=== PATIENT | female | born 1950 | race Caucasian/White ===

== ENCOUNTER 2018-05-24 07:26 | Observation (INO) | payer OTHER ==
[2018-05-24] MEDS ORDERED: NS 1,000 ML IV ONE (07:31)
[2018-05-24] MEDS ORDERED: DIAZEPAM 5 MG TAB PO ONE (07:31)
[2018-05-24] MEDS ORDERED: ASPIRIN EC 325 MG TAB PO ONE ×2 (07:31→08:15)
[2018-05-24] MEDS ORDERED: diphenhydrAMINE 25 MG CAP PO ONE ×2 (07:31→08:14)
[2018-05-24] MEDS ORDERED: FAMOTIDINE 20 MG TAB PO ONE (07:31)
[2018-05-24 08:13] LABS: PLATELET COUNT 300 10^3/uL (150-400)
[2018-05-24] MEDS ORDERED: FAMOTIDINE 20 MG TAB ONE (08:14)
[2018-05-24] MEDS ORDERED: DIAZEPAM 5 MG TAB ONE (08:16)
[2018-05-24 08:40] LABS: INR 0.93 (0.83-1.16); PROTIME(PATIENT) 12.7 SEC (12.0-15.0)
[2018-05-24] MEDS ORDERED: HEPARIN 10,000 UNIT/10 ML MDV (1,000 UNIT/ML) ONE (09:02)
[2018-05-24] MEDS ORDERED: LIDOCAINE 1% 300 MG/30 ML SDV ONE (09:02)
[2018-05-24] MEDS ORDERED: IOPAMIDOL (ISOVUE-300) 150 ML BTL ONE ×2 (09:02→10:30)
[2018-05-24] MEDS ORDERED: fentaNYL 100 MCG/2 ML INJ ONE ×3 (09:03→11:38)
[2018-05-24] MEDS ORDERED: MIDAZOLAM 2 MG/2 ML VIAL ONE ×3 (09:03→10:57)
--- NOTE | 2018-05-24 09:22 | PDHPUP ---
History & Physical Update H&P update statement: This history and physical update is based on an assessment of the patient which was completed after admission or registration (within 24 hours), but prior to the surgery/procedure. H&P update: H&P reviewed & patient examined, no change in patient's condition since H&P completed
--- NOTE | 2018-05-24 09:22 | PDPROPOC ---
Sedation Plan of Care Sedation Plan of Care: vital signs stable, mental status noted, patient educated of risks, benefits, alternatives, patient can tolerate sedation ASA Classification: ASA 2 Planned drugs: fentanyl, midazolam Mallampati Score: Class 2 Mallampati Reference Image: Patient passed 3-3-2 rule?: Yes
[2018-05-24] MEDS ORDERED: NITROGLYCERIN 1,500 MCG/15 ML VIAL MISC ONE (11:54)
[2018-05-24] MEDS ORDERED: IOPAMIDOL (ISOVUE-300) 50 ML VIAL ONE (11:56)
[2018-05-24] MEDS ORDERED: CLOPIDOGREL BISULFATE 75 MG TAB ONE (12:02)
[2018-05-24] MEDS ORDERED: TEMAZEPAM 15 MG CAP PO PRN (12:26)
[2018-05-24] MEDS ORDERED: CLOPIDOGREL BISULFATE 75 MG TAB PO ONE (12:26)
[2018-05-24] MEDS ORDERED: NITROGLYCERIN 0.4 MG BTL SL PRN (12:26)
[2018-05-24] MEDS ORDERED: ATROPINE SULFATE 1 MG/10 ML SYR IVP PRN (12:26)
[2018-05-24] MEDS ORDERED: LORazepam 2 MG/ML INJ IVP PRN (12:26)
[2018-05-24] MEDS ORDERED: ONDANSETRON 4 MG/2 ML VIAL IVP PRN (12:26)
[2018-05-24] MEDS ORDERED: MAG HYDROX/AL HYDROX/SIMETH 30 ML UDCUP ONE (12:30)
[2018-05-24] MEDS ORDERED: MAG HYDROX/AL HYDROX/SIMETH 30 ML UDCUP PO PRN (13:22)
--- NOTE | 2018-05-24 15:58 | CPIP ---
[f rep st] INVASIVE CARDIAC PROCEDURE DATE OF PROCEDURE: 05/24/2018 PROCEDURE: 1. Abdominal aortography. 2. Left lower extremity angiography via contralateral approach with catheter placed in the left comm on femoral artery. 3. Right lower extremity angiography via ipsilateral approach with catheter placed in the right comm on iliac artery. 4. Angioplasty of left superficial femoral artery using drug coated balloon. INDICATION: Claudication. ACCESS: Patient was prepped and draped in sterile fashion. 1% lidocaine was used to anesthetize the right inguinal region. A 6-Chilean introducer sheath was placed selectively in the right common femo ral artery via modified Seldinger technique. The 6-Chilean introducer sheath was later exchanged for a 6-Chilean [place] Destination sheath via exchange wire technique. The sheath was then exchanged fo r a 7-Chilean introducer sheath via exchange wire technique. ABDOMINAL AORTOGRAPHY: A 6-Chilean pigtail catheter was placed in the abdominal aorta and position ve rified by angiography. Images were obtained via power injection through the [place] system. The abdo frances aorta gave rise to a single left and single right renal artery. The renal arteries appeared fr ee of any significant disease. Below the renal arteries, the distal abdominal aorta was diffusely di seased with stenoses approaching 20% in severity. The distal abdominal aorta then bifurcated into th e right and left common iliac arteries. The right common iliac artery had a 40% to 50% stenosis pres ent. The left common iliac artery had a 40% to 50% stenosis present. LEFT LOWER EXTREMITY ANGIOGRAPHY VIA CONTRALATERAL APPROACH WITH CATHETER PLACED IN THE LEFT COMMON F EMORAL ARTERY: The Sos Omni catheter was placed in the distal abdominal aorta and reformed into its usual position. The catheter was used to selectively engage the left common iliac artery. Images we re obtained via hand injection. The left common iliac artery bifurcated into the internal iliac angel ry and external iliac arteries. The left common iliac artery had a proximal ostial 40% to 50% stenos is present. The left internal iliac artery had an ostial 90% stenosis present. The left external il iac artery had a long segmental 30% stenosis present. An angled Glidewire was then placed in the lef t common femoral artery, and the Sos Omni catheter was exchanged for a straight flush catheter, and i mages were obtained of the remainder of the left lower extremity. The left external iliac artery tur jacinto into the left common femoral artery. The left common femoral artery appeared free of any signifi cant disease. The left common femoral artery then bifurcated into the superficial femoral artery and profunda femoral artery. The proximal portion of the superficial femoral artery was diffusely disea sed. At approximately 30% to 40% in severity. In the mid to distal vessel, there was a long segment al 99% stenosis of the superficial femoral artery. The superficial femoral artery then turned into t he popliteal artery. The popliteal artery had mild luminal irregularities. There was no stenosis gr eater than 10% to 20%. Below the knee, there was 2-vessel runoff via the posterior tibial and the pe roneal arteries. RIGHT LOWER EXTREMITY ANGIOGRAPHY VIA IPSILATERAL APPROACH: The straight flush catheter was placed i n the right common iliac artery and images obtained. The right common iliac artery bifurcated into t he internal and external iliac arteries. The right common iliac artery had an ostial 40% to 50% sten osis present. The right internal iliac artery appeared free of any significant disease in the proxim al segment. The right external iliac artery had a segmental 20% stenosis present. The right externa l iliac artery then turned into the right common femoral artery. The right common femoral artery is free of any significant disease. The right common femoral artery then bifurcated into the superficia l femoral artery and profunda femoral artery. The right superficial femoral artery was diffusely dis eased. In the proximal mid segment, there is sequential 20% stenosis present. In the mid to distal segment, there is sequential 80% stenosis present. The right superficial femoral artery then turned into the popliteal artery. The popliteal artery had a discrete 30% stenosis in the proximal segment. The popliteal artery then trifurcated below the knee. There was 2-vessel runoff via the anterior t ibial and peroneal arteries. ANGIOPLASTY OF THE LEFT SUPERFICIAL FEMORAL ARTERY: A [place] Destination sheath was placed in the left external iliac artery via exchange wire technique. An attempt was made at passing an angled Gli dewire across the mid to distal superficial femoral artery lesion. This was unsuccessful. The angle d Glidewire was then exchanged for a Luge wire. The Luge wire was also unsuccessful at navigating ac ross the lesion. The Luge wire was then exchanged for a Family Nurse 50 wire which successfully navigated a cross the distal superficial femoral artery lesion and was placed in the popliteal artery. A 2.0 x 4 0 cavity balloon was then advanced over the catheter into the popliteal artery. Distal injection con firmed luminal access in the popliteal artery. The 2.0 x 40 cavity balloon was then used to pre-dila te the lesion. Followup angiography demonstrated significant residual stenosis. A 3.0 x 100 cavity balloon was then used to pre-dilate the lesion. Followup angiography demonstrated significant residu al stenosis. A 3.5 x 15 cavity balloon was used to address the high-grade calcific lesion. Followup angiography demonstrated resolution of this lesion. A 4.0 x 100 guide travel was placed across the lesio n and deployed. Followup angiography demonstrated no residual stenosis. A 4.0 x 150 Lutonix balloon was then placed across the lesion and deployed. Followup angiography demonstrated no significant re sidual stenosis. COMPLICATIONS: None. CONCLUSIONS: 1. 99% left superficial femoral artery stenosis status post drug-coated balloon angioplasty with goo d result. 2. 80% right superficial femoral artery stenosis. We will plan on staged intervention of this lesio n. /[id number]/MODL
[2018-05-24] MEDS: OXYCODONE/APAP 5/325 TAB PO PRN (17:07)
--- NOTE | 2018-05-24 17:09 | CPEKG ---
Test Reason : OPEN Blood Pressure : / mmHG Vent. Rate : 079 BPM Atrial Rate : 056 BPM P-R Int : 171 ms QRS Dur : 080 ms QT Int : 463 ms P-R-T Axes : 026 011 026 degrees QTc Int : 531 ms Sinus rhythm Prolonged QT interval Confirmed by Car Johnson ([id number]) on 05/24/2018 5:08:27 PM Referred By: Confirmed By:Car Johnson
--- NOTE | 2018-05-24 17:12 | CPEKG ---
Test Reason : OPEN Blood Pressure : / mmHG Vent. Rate : 058 BPM Atrial Rate : 057 BPM P-R Int : 181 ms QRS Dur : 086 ms QT Int : 468 ms P-R-T Axes : 064 017 035 degrees QTc Int : 460 ms Sinus rhythm Confirmed by Car Johnson ([id number]) on 05/24/2018 5:12:27 PM Referred By: Confirmed By:Car Johnson
[2018-05-24] MEDS: METOPROLOL TARTRATE 25 MG TAB PO SCH (20:47)
[2018-05-24] MEDS ORDERED: ATORVASTATIN CALCIUM 40 MG TAB PO SCH (21:00)
[2018-05-25 04:52] LABS: PLATELET COUNT 235 10^3/uL (150-400)
[2018-05-25 07:21] VITALS: BP 92/45
[2018-05-25] MEDS ORDERED: ASPIRIN EC 325 MG TAB PO SCH (09:00)
[2018-05-25] MEDS ORDERED: CLOPIDOGREL BISULFATE 75 MG TAB PO SCH (09:00)
[2018-05-25] MEDS ORDERED: ASCORBIC ACID 500 MG TAB PO SCH (09:00)
[2018-05-25] MEDS ORDERED: CHOLECALCIFEROL VIT D3 1,000 UNITS TAB PO SCH (09:00)
[2018-05-25] MEDS ORDERED: amLODIPine BESYLATE 5 MG TAB PO SCH (09:00)
[2018-05-25] MEDS: METOPROLOL TARTRATE 25 MG TAB PO SCH (09:09)
--- NOTE | 2018-05-25 09:36 | GDS ---
[f rep st] DISCHARGE SUMMARY SUPERVISING CLOTHING CONSULTANT: Nikolay Allan MD. ADMISSION DIAGNOSES: 1. Peripheral vascular disease. 2. Claudication. 3. Coronary artery disease, with remote coronary artery bypass graft. 4. History of paroxysmal atrial fibrillation (1 time postoperative coronary artery bypass graft). 5. Hypercholesterolemia. 6. Hypertension. 7. Chronic obstructive pulmonary disease. 8. Current tobacco abuse. DISCHARGE DIAGNOSES: 1. Peripheral vascular disease. 2. Status post angioplasty of left superficial femoral artery using a drug-coated balloon. 3. Coronary artery disease with remote history of coronary artery bypass graft. 4. Paroxysmal atrial fibrillation (1 time postoperative coronary artery bypass graft). 5. Hypercholesteremia. 6. Hypertension. 7. Chronic obstructive pulmonary disease. 8. Tobacco abuse. PROCEDURES PERFORMED DURING HOSPITALIZATION: 1. Electrocardiogram. 2. Abdominal aortogram. 3. Left lower extremity angiogram. 4. Right lower extremity angiogram. 5. Angioplasty of left superficial femoral artery using a drug-coated balloon. BRIEF HISTORY: Please see H and P. Briefly, the patient is a 68-year-old female with significant banner history of CAD, CABG x5 vessels in 2014, paroxysmal atrial fibrillation (1 time postop CABG), hype rcholesteremia, hypertension, COPD, and current smoker. Recently seen in the office by me, reporting ongoing pain with exertion in both lower extremities, in the calves and thighs. She did undergo VANNESSA testing, showing on the right of 0.74 and on the left of 0.45. After VANNESSA, she did undergo CT angiog bert of her lower extremities, showing high-grade disease in the superficial femoral arteries bilatera l. She was referred to Dr. Justino Estrada of Interventional Cardiology and peripheral vascular. He ivonne luated the patient and felt she was an appropriate candidate to undergo angiogram, with possible jacob pheral vascular intervention. HOSPITAL COURSE: Patient admitted through CVC, prepped for procedure, and taken to the cardiac ervin terization lab. There, Dr. Estrada performed an abdominal aortogram, which showed no significant dise ase in the renal arteries, below diffuse in the abdominal aorta, diffuse disease with sten osis approaching up to 20% in severity. Right common iliac artery had a 40% to 50% stenosis. The le ft common iliac artery had a 40% to 50% stenosis. Then left lower extremity angiogram was performed, again noticing 40% to 50% in the common iliac artery. The left internal iliac artery had a 90% sten osis present. The left external iliac artery had a long segment of 30% stenosis. A right lower extre mity angiogram was performed, showing 40% to 50% in the iliac artery. The right external iliac arter y showed a 20% stenosis. The right superficial artery showed diffuse disease, with a proximal mid se gment with 20% stenosis and the mid to distal 80% stenosis. The popliteal artery had a 30% stenosis in the proximal segment. At that point, percutaneous intervention was performed with balloon angiopl asty with drug-eluting balloon angioplasty to the left superficial femoral artery. No complications. Patient was taken back to the CVC, and ultimately to the PCU for overnight observation. Patient re ports today noticing significant improvement in her left lower extremity with movement, denying any c laudication. She has been up and walking in the unit without difficulties. Overnight, she was noted to be mildly hypotensive with systolic blood pressures in the mid 90s, but she was asymptomatic. Sh e reports no chest pain or pressure. PHYSICAL EXAMINATION: GENERAL: Done today, showing she is alert and oriented to person, place, time , and situation. Appears to be under no acute distress. VITAL SIGNS: Current vital signs are blood pressure of 96/52. Heart rate is 60, sinus rhythm on the monitor. Respirations are 20, saturating 9 6% on room air. Temperature 37.1 degrees Celsius. HEENT: Head is normocephalic. Lips and tongue a re pink and moist, with no signs of cyanosis. Conjunctivae pink. NECK: Trachea is midline. +2 car otid pulses bilateral. No auscultated bruits. No jugular vein distention. RESPIRATORY: Lungs are clear to auscultation, no rhonchi, rales or wheezes. No accessory muscle use. No intercostal muscle retraction noted. CARDIAC: Regular rate, regular rhythm, S1, S2, no S3, S4, gallops, rubs or murmu rs noted. ABDOMEN: Soft, nontender, bowel sounds x4 quadrants. No organomegaly. No palpable krishna s. SKIN: [place], warm, dry, no cyanosis, no clubbing, no peripheral edema. VASCULAR: +2 carotids bi lateral, +2 radials bilateral, +1-2 post tibial and dorsal pedal pulses in the left lower extremity, +1 posterior tibial pulses, right lower extremity. RIGHT GROIN SITE: Catheter insertion site, with mild ecchymosis but no redness, swelling, drainage, or hematoma noted. No auscultated bruit. LABORATORY STUDIES: WBC of 7.57, hemoglobin 13.6, hematocrit of 41.4, platelet count 235. Sodium 14 1, potassium 4.3, chloride 110, CO2 25, BUN 11, creatinine 0.8, glucose 92, calcium 8.5. On admissio n, it was noted fasting lipid panel showed triglycerides of 117, total cholesterol 130, LDL 65, HDL 4 2. DISCHARGE DISPOSITION: Patient will be discharged home in stable condition. He is under activity re strictions of not lifting more than 10 pounds for the next week. No strenuous activity for the next 2 weeks. PROCEDURES PERFORMED: Peripheral vascular intervention as mentioned above. Electrocardiogram done o n the showing sinus rhythm, with no significant ST or T-wave abnormalities. DISCHARGE MEDICATIONS: Please see discharge medication reconciliation. Note that patient's home asp irin dosage has been increased to 325 mg p.o. daily. She has also been started on antiplatelet thera py at clopidogrel 75 mg p.o. today. Also, because of her lower blood pressures, her amlodipine has been discontinued. DISCHARGE INSTRUCTIONS: Post percutaneous peripheral intervention discharge instructions went over w ith the patient and her , including monitoring for signs of infection, bleeding precautions an d activity restrictions. Importance of medication compliance was also discussed. Also, a long discu ssion with the patient about her tobacco abuse. She has been referred to the [place] [facility]. Ul timately, she needs to quit smoking for both her heart disease and peripheral vascular disease. She verbalizes understanding. At the time of discharge, the patient verbalizes understanding all instruc tions and has no questions or concerns. Our office will call her on Sunday to schedule her for a sta ged intervention to her right lower extremity to be done in the next [address] Estrada. Patient has been told that if any problems or concerns come up post discharge, she is to notify our office or return to the hospital. Total time spent on discharge greater than 30 minutes. /[id number]/MODL
[2018-05-25] MEDS: OXYCODONE/APAP 5/325 TAB PO PRN (09:42)
[2018-05-28] MEDS ORDERED: ALENDRONATE SODIUM 70 MG TAB PO SCH (07:00)
== END 2018-05-25 10:00 | disposition home or self-care (01) ==
LOC: FCATH 07:26 → F2W 12:27
PROVIDERS: ADMIT Internal Medicine Cardiovascular Disease; ATTEND Internal Medicine Cardiovascular Disease
PROC: 04HL33Z Insertion of Infusion Device into Left Femoral Artery, Percutaneous Approach (ICD-10-PCS; principal; 2018-05-24)
PROC: 047C341 Dilation of Right Common Iliac Artery with Drug-eluting Intraluminal Device, using Drug-Coated Balloon, Percutaneous Approach (ICD-10-PCS; principal; 2018-05-24)
PROC: 04HC33Z Insertion of Infusion Device into Right Common Iliac Artery, Percutaneous Approach (ICD-10-PCS; principal; 2018-05-24)
DX: I73.9 Peripheral vascular disease, unspecified (principal); I25.10 Atherosclerotic heart disease of native coronary artery without angina pectoris; I48.0 Paroxysmal atrial fibrillation; E78.00 Pure hypercholesterolemia, unspecified; I10 Essential (primary) hypertension; J44.9 Chronic obstructive pulmonary disease, unspecified; F17.200 Nicotine dependence, unspecified, uncomplicated
CPT/HCPCS: 75630; 75716; 93005; C1725; C1769; C1887; C2623; G0378; J1644; J2250; J2405; J3010; Q9967

== ENCOUNTER 2018-06-13 07:45 | Observation (INO) | payer OTHER ==
[2018-06-13] MEDS ORDERED: diphenhydrAMINE 25 MG CAP PO ONE (07:46)
[2018-06-13] MEDS ORDERED: DIAZEPAM 5 MG TAB PO ONE (07:46)
[2018-06-13] MEDS ORDERED: FAMOTIDINE 20 MG TAB PO ONE (07:46)
[2018-06-13] MEDS ORDERED: NS 1,000 ML IV ONE (07:46)
[2018-06-13] MEDS ORDERED: ASPIRIN EC 325 MG TAB PO ONE (07:46)
[2018-06-13 08:14] LABS: PLATELET COUNT 303 10^3/uL (150-400)
[2018-06-13 08:27] LABS: INR 0.96 (0.83-1.16)
[2018-06-13] MEDS ORDERED: fentaNYL 100 MCG/2 ML INJ ONE ×2 (08:55→09:31)
[2018-06-13] MEDS ORDERED: HEPARIN 10,000 UNIT/10 ML MDV (1,000 UNIT/ML) ONE (08:55)
[2018-06-13] MEDS ORDERED: MIDAZOLAM 2 MG/2 ML VIAL ONE ×3 (08:55→10:07)
[2018-06-13] MEDS ORDERED: IOPAMIDOL (ISOVUE-300) 150 ML BTL ONE ×3 (08:56→10:34)
[2018-06-13] MEDS ORDERED: LIDOCAINE 1% 300 MG/30 ML SDV ONE (08:57)
--- NOTE | 2018-06-13 09:25 | PDGENHP ---
History & Physical Chief Complaint: claudication History of Present Illness: Pt has known PVD. She is s/p peripheral angiography in 05/18 demonstrated significant disease of her R and L SFA. She was treated with DCB angioplasty of L SFA. Pt continues to have life style limiting claudication of her RLE. She denies rest pain and non-healing ulcers. Pertinent Past, Social, Family History: See H and P Relevant Physical Exam: 2+ DP and PT on L deminished pulses on R. Lungs CTA. RRR, S1, S2. Cardiorespiratory Assessment: Pt presents with life style limiting claudication and has known high grade disease of her R SFA. Plan is for peripheral angiography and interventiuon.
[2018-06-13] MEDS ORDERED: NITROGLYCERIN 1,500 MCG/15 ML VIAL MISC ONE (10:27)
[2018-06-13] MEDS ORDERED: ONDANSETRON 4 MG/2 ML VIAL IVP PRN (11:05)
[2018-06-13] MEDS ORDERED: NITROGLYCERIN 0.4 MG BTL SL PRN (11:05)
[2018-06-13] MEDS ORDERED: ATROPINE SULFATE 1 MG/10 ML SYR IVP PRN (11:05)
--- NOTE | 2018-06-13 11:21 | CPIP ---
DATE OF PROCEDURE: 06/13/2018 PROCEDURE: 1. Left lower extremity angiography via ipsilateral approach with catheter placed in the left common femoral artery. 2. Right lower extremity angiography via contralateral approach with catheter placed in the right ex ternal iliac artery. 3. Drug coated balloon angioplasty of the right superficial femoral artery. INDICATION: Lifestyle limiting claudication. ACCESS: Patient was prepped and draped in sterile fashion. 1% lidocaine was used to anesthetize the left inguinal region. A 6-Malawian introducer sheath was placed in the left common femoral artery via modified Seldinger technique. The 6-Malawian introducer sheath was later exchanged for a 7-Malawian int roducer sheath via exchange wire technique, left lower extremity angiography via ipsilateral approach with catheter placed in the left common femoral artery. Images were obtained via hand injection thr ough the 6-Malawian introducer sheath placed selectively into the left common femoral artery. The left external iliac artery had a long 40% to 50% stenosis present. The left external iliac artery then t urned into the left common femoral artery. The left common femoral artery was free of any significan t disease. The left common femoral artery then bifurcated into the superficial femoral artery and pr ofunda femoral artery. The left superficial femoral artery was diffusely disease with scattered 25% stenosis throughout. Right lower extremity angiography via contralateral approach with catheter plac ed in the right external iliac artery. A Sos Omni catheter was placed in the distal abdominal aorta and reformed into its usual position. It was used to selectively engage the right common iliac arter y. The right common iliac artery bifurcated into an internal iliac artery and external iliac arterie s. The right common iliac artery had an ostial 25% stenosis present. The right internal iliac arter y was free of any significant disease. The right external iliac artery had mild diffuse disease. Th ere was no stenosis greater than 15%. The right external iliac artery then turned into the right com mon femoral artery. The right common femoral artery was free of any significant disease. The right common femoral artery then bifurcated into the superficial femoral artery and profunda femoral arteri es. The right superficial femoral artery was diffusely diseased. In the mid vessel, there was a seg mental 70% stenosis present and in the distal vessel, there was a segmental 90% stenosis present. Th e right superficial femoral artery then turned into the popliteal artery. The popliteal artery had a discrete 30% stenosis present. Below the knee, there was 3-vessel runoff. The posterior tibial art dominic was a small and diminutive vessel. The anterior tibial artery was the largest of the 3 vessels. Drug coated balloon angioplasty of the right superficial femoral artery. A 6-Malawian [place] Romero ation sheath was placed in the right external iliac artery and position verified by angiography. A G lidewire was placed in the popliteal artery and position verified by angiography. A 5.0 x 40 Lutonix balloon was used to dilate the distal 90% stenosis. Followup angiography demonstrated 20% residual stenosis with evidence of a non flow limiting dissection. A 4.0 x 60 Lutonix drug coated balloon was then placed in the mid vessel across the 70% patient and deployed. Followup angiography demonstrate d no limitation of flow. No significant residual stenosis. COMPLICATIONS: None. CONCLUSIONS: 1. 70% mid right superficial femoral artery stenosis, status post drug coated balloon angioplasty. 2. 90% distal right superficial femoral artery stenosis, status post drug coated balloon angioplasty . /[id number]/MODL
[2018-06-13] MEDS ORDERED: ATORVASTATIN CALCIUM 40 MG TAB PO SCH (21:00)
[2018-06-13] MEDS: METOPROLOL TARTRATE 25 MG TAB PO SCH (21:09)
[2018-06-14] MEDS ORDERED: IBUPROFEN 600 MG TAB PO PRN (03:20)
[2018-06-14 03:40] LABS: PLATELET COUNT 277 10^3/uL (150-400)
[2018-06-14] MEDS ORDERED: CHOLECALCIFEROL VIT D3 1,000 UNITS TAB PO SCH (09:00)
[2018-06-14] MEDS ORDERED: ASCORBIC ACID 500 MG TAB PO SCH (09:00)
[2018-06-14] MEDS ORDERED: CLOPIDOGREL BISULFATE 75 MG TAB PO SCH (09:00)
[2018-06-14] MEDS ORDERED: ASPIRIN EC 325 MG TAB PO SCH (09:00)
[2018-06-14] MEDS: METOPROLOL TARTRATE 25 MG TAB PO SCH (09:59)
[2018-06-14 12:09] VITALS: BP 114/60
--- NOTE | 2018-06-15 05:06 | GDS ---
ADMISSION DIAGNOSES: 1. Peripheral vascular disease. 2. Planned peripheral vascular angiogram. 3. Coronary artery disease. 4. Chronic obstructive pulmonary disease. 5. Hypertension. 6. Hyperlipidemia. 7. Paroxysmal atrial fibrillation. DISCHARGE DIAGNOSES: 1. Status post successful angioplasty of the right superficial femoral artery. 2. Successful angioplasty of the distal right superficial femoral artery. 3. Peripheral vascular disease. 4. Coronary artery disease. 5. Chronic obstructive pulmonary disease. 6. Hypertension. 7. Hyperlipidemia. 8. Paroxysmal atrial fibrillation. COURSE OF HOSPITALIZATION: This lady was seen in clinic initially by Moises Post for peripheral vascular disease and increasing exertional calf pain bilaterally. He referred her to Dr. Justino saldivar for further peripheral vascular evaluation and recommendations. She was seen by Dr. Estrada on April 18, 2018. Ultimately, he recommended consideration for further invasive evaluation of her periphera l vascular disease. She preferred to try exercise therapy, which did not provide relief. She then a greed to proceed with left and right lower extremity angiography finding 70% mid right superficial fe moral artery stenosis with drug eluded balloon angioplasty and 90% distal right superficial femoral a rtery stenosis, status post drug coated balloon angioplasty. Her groin sites are intact with no blee ding, induration, or pain. She has been up ambulating in her room. At this time, she is stable for discharge. MEDICATIONS: On day of discharge: Resume herbal supplements 1 daily, vitamin D3 1000 units daily, v itamin C 500 mg daily, Fosamax 70 mg orally on Tuesdays, Lopressor 12.5 mg twice daily, Lipitor 60 mg at bedtime, enteric-coated aspirin 325 mg daily, Plavix 75 mg daily. ALLERGIES: No known allergies. PHYSICAL EXAMINATION: On day of discharge: VITALS: Blood pressure 114/60, heart rate 57 and regula r, oxygen saturation 93%. Temperature 36.5. EKG shows normal sinus bradycardia. HEART: Rate regul ar. No murmurs, rubs, gallops. LUNGS: Clear to auscultation. No wheezes, rales, or rhonchi. Bila teral femoral cath sites are intact with no bleeding or induration. Left site mildly tender. Periph eral lower extremity pulses are intact at 2+ bilaterally. Pedal pulses 2+ bilaterally. DISCHARGE PLAN: She was reminded to take her Plavix every day without fail. Groin precautions for 7 days given verbally and written. No heavy lifting, pushing, pulling greater than 10 pounds for 7 da ys. No sitting in a tub of water for 7 days. Okay to shower. Low-level activity for 1 week, then g radually increase. Keep bowels soft to avoid bearing down. If problems, call Dr. Estrada's R.N. at [facility]. Followup appointment with Dr. Estrada on 06/24/2018, at 11:30 in the [place] office. At this time, she currently is stable for discharge. /[id number]/MODL
[2018-06-18] MEDS ORDERED: ALENDRONATE SODIUM 70 MG TAB PO SCH (07:00)
== END 2018-06-14 13:54 | disposition home or self-care (01) ==
LOC: FCATH 07:45 → F2W 11:05
PROVIDERS: ADMIT Internal Medicine Cardiovascular Disease; ATTEND Internal Medicine Cardiovascular Disease
PROC: 047K3Z1 Dilation of Right Femoral Artery using Drug-Coated Balloon, Percutaneous Approach (ICD-10-PCS; principal; 2018-06-13)
PROC: 047L3Z1 Dilation of Left Femoral Artery using Drug-Coated Balloon, Percutaneous Approach (ICD-10-PCS; principal; 2018-06-13)
DX: I73.9 Peripheral vascular disease, unspecified (principal); I25.10 Atherosclerotic heart disease of native coronary artery without angina pectoris; J44.9 Chronic obstructive pulmonary disease, unspecified; I10 Essential (primary) hypertension; E78.5 Hyperlipidemia, unspecified; I48.0 Paroxysmal atrial fibrillation
CPT/HCPCS: 37224; 75625; 75716; C1769; C2623; G0378; J1644; J2250; J2270; J3010; Q9967; J0461

== ENCOUNTER 2019-03-28 07:34 | Day surgery (SDC) | payer OTHER | END 2019-03-28 15:51 | disposition home or self-care (01) | LOC: FCATH 07:34 ==